=== PATIENT | male | born 1970 | race Caucasian/White ===

== ENCOUNTER 2021-12-14 07:44 | Emergency (ER) | payer OTHER, SELFPAY ==
[2021-12-14 07:47] VITALS: BP 174/89; PULSE 72; RESP 17; TEMP 36.9; O2SAT 96; BMI 30.9
--- NOTE | 2021-12-14 08:12 | EX.ED.DYSGE1 ---
HPI History of Present Illness Chief Complaint: Shortness of Breath Informant: patient Onset/Context/Timing Onset: Today Context: Gradual Onset (shortly after blowing nose) Timing: Continuous Quality: ache Location: left mid back Current Severity: Moderate Maximum Severity: Severe Worsened by: breathing, moving, palpation Relieved by: aleve but not much Associated Symptoms Associated Symptoms: a little sob Narrative Narrative: 51-year-old male states he blows his nose because my likes to run the air conditioner cold he denies any recent illness; he blew his nose this morning and shortly afterwards he noticed he was having a pain in his left mid back that hurts a lot more to take deep breaths, to move, and when they did a routine stretch at work today. He works on construction site locally here, he lives in the [facility], travels around basically [facility] and has not traveled out of the area recently for work. He denies any history of a DVT or PE. No recent leg swelling or calf pain. No coughing recently. He denies any caroline dyspnea but states he is breathing a little heavier since this pain started. [facility] Medical History (Updated 12/14/21 @ 09:[address] Eric Roberts MD) GERD (gastroesophageal reflux disease) Hyperlipidemia Hypothyroid Low testosterone Home Medications levothyroxine 25 mcg PO DAILY 12/14/21 [History Last Taken Unknown] omeprazole 20 mg PO DAILY 12/14/21 [History Last Taken Unknown] rosuvastatin 10 mg PO DAILY 12/14/21 [History Last Taken Unknown] testosterone cypionate 12/14/21 [History Last Taken Unknown] Allergy/AdvReac Type Severity Reaction Status Date / Time vancomycin Allergy Itching Verified 12/14/21 07:45 Surgical History (Updated 12/14/21 @ 09:11 by Raymond Whitmore RN) Hx of hernia repair Hx of shoulder surgery Surgical History no surgical history no surgical history Social History Smoking Status: Current every day smoker tobacco type: cigarettes, e-cigarettes and smokeless tobacco ROS ROS ED Constitutional Constitutional ED: Denies chills or fever(s) Eyes Eyes: Denies change in vision or diplopia ENT ENT ED: Denies rhinorrhea or sore throat Cardiovascular Cardiovascular: Denies chest pain or palpitations Respiratory/Chest Respiratory/Chest: Reports as per HPI; Denies cough or dyspnea Gastrointestinal Gastrointestinal: Denies abdominal pain, diarrhea, nausea or vomiting Genitourinary Genitourinary ED: Denies dysuria or hematuria Musculoskeletal Musculoskeletal: Reports as per HPI and back pain; Denies neck pain Integumentary Denies abscess or rash Neurologic Neurologic: Denies headache(s), paresthesias or weakness Psychiatric Psychiatric: Denies anxiety or suicidal thoughts EXAM Physical Exam Const Vital Signs: 12/14/21 07:47 12/14/21 09:11 Temperature 98.5 F Temperature Source Temporal Pulse Rate 72 Respiratory Rate 17 Respiratory Effort Normal Non-Labored Respiratory Depth Normal Respiratory Pattern Normal Blood Pressure 174/89 H Blood Pressure Mean 117 Pulse Ox 96 Oxygen Delivery Method Room Air Room Air Positive well nourished and well developed General Appearance ED: well developed and NAD HEENT Reports moist mucous membranes normocephalic and atraumatic Eyes PERRL and EOMs intact bilaterally Neck full ROM and supple Resp normal respiratory effort and clear to auscultation bilaterally Resp Narrative: Equal breath sounds bilaterally Effort and Inspection: able to speak in complete sentences and symmetric chest movement Cardio regular rate, regular rhythm and no murmurs Rate: Negative for tachycardic GI non-tender and non-distended Auscultation: normoactive bowel sounds Palpation: soft Back/Spine no CVA tenderness Back/Spine Narrative: Tender in the left mid thoracic paraspinal back, on 1 particular rib/ICS. This is fairly caudal to the tip of the scapula. General Back: other FROM Extremity normal to inspection, no calf tenderness and no pedal edema General Extremety ED: Negative for edema, pulses abnormal or tenderness General Extremity: Negative for edema or pulses abnormal Neuro oriented x3, CN's II-XII intact bilaterally and no sensory deficits noted Sensorium / Orientation: awake and alert Motor Exam: strength 5/5 throughout Skin no rashes or lesions noted and no wounds MDM MDM MDM Narrative Medical decision making narrative: I am able to reproduce the pain on palpation and the patient makes the pain worse by moving, in addition to breathing. This is clearly musculoskeletal, and not a PE. I obtained a rib series along with a PA chest, 4 views on my interpretation, there is nothing acute. No pneumothorax or rib fracture seen. Radiology in agreement. I suspect the patient strained intercostal muscle in this area. He already took NSAIDs prior to getting here, we do not have any topicals to put on here but he states he has some Biofreeze at home, I offered a prescription for prescription analgesics and he declined and is comfortable going home or back to work. Radiography Diagnostic Testing: Clinical Impression(s) from Imaging Studies Ribs w/Chest X-Ray 12/14/21 08:33 IMPRESSION: RIBS: Normal x-ray examination of the ribs. CHEST: The findings suggest some mild linear atelectasis at the left lung base. Electronically Signed: Dk To MD at 8:52 EDT , Discharge Plan Triage Chief Complaint: Shortness of Breath ED Provider: Eric Roberts Dx/Rx/DC Orders Clinical Impression: Intercostal muscle strain Instructions: ED Thoracic Spine Strain Prescriptions: No Action levothyroxine 25 mcg tablet 25 mcg PO DAILY RF: 0 omeprazole 20 mg capsule,delayed release(DR/EC) 20 mg PO DAILY RF: 0 testosterone cypionate 200 mg/mL oil RF: 0 rosuvastatin 10 mg tablet 10 mg PO DAILY RF: 0 Referrals: [facility] [Other] - 1 Week if not improving Activity Restrictions/Additional Instructions: Aleve or ibuprofen as needed, also topicals may be helpful such as Salonpas, Biofreeze, IcyHot etc. Disposition Disposition: Home, Self Care
--- NOTE | 2021-12-14 08:33 | RAD_ITS ---
STUDY: X-RAY - UNILATERAL RIBS ( LEFT ) WITH CHEST REASON FOR EXAM: Male, 51 years old. Pain left back rib no history of trauma. TECHNIQUE - RIBS: 4 view(s) of the ribs. TECHNIQUE - CHEST: Single PA view of the chest. COMPARISON: None. FINDINGS - RIBS: Normal visualized ribs without a demonstrated fracture. FINDINGS - CHEST: Mild degree of increased markings at the left lung base suggesting mild atelectasis. There is no demonstrated pleural abnormality. Normal size heart. Normal mediastinum and sylvester. Normal visualized pulmonary arteries. Normal visualized aortic arch and descending thoracic aorta. Normal visualized thoracic spine. Normal visualized ribs, clavicles, and shoulders. There is no demonstrated abnormality of the visualized soft tissue structures of the upper abdomen. RAD/Ribs Uni Min 3V w/PA Chest IMPRESSION: RIBS: Normal x-ray examination of the ribs. CHEST: The findings suggest some mild linear atelectasis at the left lung base. Electronically Signed: Dk To MD at 8:52 EDT ,
== END 2021-12-14 10:21 | disposition home or self-care (01) ==
PROVIDERS: Emergency Provider Emergency Medicine; Visit Provider Emergency Medicine
DX: S29.011A Strain of muscle and tendon of front wall of thorax, initial encounter (principal); X58.XXXA Exposure to other specified factors, initial encounter; R06.02 Shortness of breath; E78.5 Hyperlipidemia, unspecified; E03.9 Hypothyroidism, unspecified; K21.9 Gastro-esophageal reflux disease without esophagitis; F17.210 Nicotine dependence, cigarettes, uncomplicated; Z79.890 Hormone replacement therapy; Z79.899 Other long term (current) drug therapy
CPT/HCPCS: 71101; 99282